=== PATIENT | male | born 2000 | race Caucasian/White ===

== ENCOUNTER 2025-05-05 15:07 | Emergency (ER) | payer MEDICAID ==
[~2025-05-05] VITALS: Ht 177.8 cm; Wt 79.0 kg
[2025-05-05 15:37] VITALS: O2SAT 99
[2025-05-05 16:38] LABS: HEMATOCRIT. 47.0 % (42.0-52.0); HEMOGLOBIN. 15.8 g/dL (14.0-18.0); MEAN PLATELET VOLUME 9.2 fl (7.4-10.4); PLATELET 163 x1000/uL (130-400); RED BLOOD CELL COUNT 5.25 mill/uL (4.7-6.1); RED CELL DISTRIBUTION WIDTH 14.0 % (11.6-14.6)
[2025-05-05 16:52] LABS: LYMPHOCYTES % MANUAL 9.0 % (20.0-50.0); MONOCYTES % MANUAL 13.0 % (2.0-8.0); NEUTROPHILS % MANUAL 78.0 % (45.0-75.0); PLATELET ESTIMATE NORMAL
[2025-05-05] MEDS: KETOROLAC 15MG/ML VIAL IM ONE (16:52)
[2025-05-05] MEDS: ONDANSETRON 4MG ODT PO ONE (16:52)
[2025-05-05 16:59] LABS: CREATININE 1.2 mg/dL (0.6-1.3)
[2025-05-05 17:00] LABS: PROTEIN TOTAL 8.0 g/dL (6.0-8.3)
[2025-05-05 17:01] LABS: ASPARTATE AMINOTRANSFERASE 17 IU/L (<34); BILIRUBIN DIRECT 0.6 mg/dL (<=3.0); BILIRUBIN TOTAL 2.0 mg/dL (0.1-1.0); UREA NITROGEN BLOOD 12 mg/dL (9-23)
[2025-05-05 17:12] LABS: CLARITY URINE CLEAR (CLEAR); COLOR URINE DARK YELLOW (YELLOW); GLUCOSE URINE NEGATIVE (NEGATIVE); KETONES URINE NEGATIVE (NEGATIVE); LEUKOCYTE ESTERASE URINE NEGATIVE (NEGATIVE); NITRITE URINE NEGATIVE (NEGATIVE); OCCULT BLOOD URINE TRACE (NEGATIVE); PH URINE 6.0 (4.5-8.0); PROTEIN URINE 2+ (NEGATIVE); SPECIFIC GRAVITY URINE 1.039 (1.005-1.030); UROBILINOGEN URINE 0.2 E.U./dL (0.2-1.0)
[2025-05-05 17:25] LABS: WBC URINE 0-2 /hpf (0-2)
[2025-05-05 17:26] LABS: BACTERIA URINE RARE; SQUAMOUS EPITHELIAL CELL URINE NONE SEEN /lpf (RARE/1+)
[2025-05-05] MEDS ORDERED: ONDA-239 PO (17:39)
[2025-05-05 17:53] VITALS: BP 124/77; PULSE 85; RESP 18; TEMP 36.7; O2SAT 99
[2025-05-05 17:54] LABS: INFLUENZA TYPE A Presumptive Negative (Pres. Neg.); INFLUENZA TYPE B Presumptive Negative (Pres. Neg.)
[2025-05-05 17:55] LABS: RESPIRATORY SYNCYTIAL VIRUS Not Detected (Not Detectd)
== END 2025-05-05 18:10 | disposition home or self-care (01) ==
LOC: ER 15:07
DX: K52.9 Noninfective gastroenteritis and colitis, unspecified (principal); R11.2 Nausea with vomiting, unspecified; J45.909 Unspecified asthma, uncomplicated; Z20.822 Contact with and (suspected) exposure to COVID-19
CPT/HCPCS: 99285; 74176; 87426; 80076; 80048; 81003; 83690; 83735; 85025; 87420; 87804 ×2; 36415; 96372; J1885; Q0162